=== PATIENT | male | born 1960 | race Two or more races ===

== ENCOUNTER 2018-09-04 09:17 | Outpatient (CLI) | payer OTHER ==
[~2018-09-04 09:17] MED LIST: LIPITOR40 MG; LOTREL 5-10 MG1 CAP; ULTRACET PO
== END 2018-09-04 10:09 | disposition home or self-care (01) ==
LOC: RAD 09:17
DX: M54.12 Radiculopathy, cervical region (principal); M19.049 Primary osteoarthritis, unspecified hand